=== PATIENT | male | born 1960 | race Two or more races ===

== ENCOUNTER 2025-09-04 21:42 | Emergency (ER) | payer OTHER, MEDICAID ==
[~2025-09-04] VITALS: Ht 177.8 cm; Wt 83.9 kg
[2025-09-04 22:56] LABS: Hematocrit 35.2 % (41.0-53.0); Hemoglobin 12.1 g/dL (13.5-17.5); Mean Corpuscular Hemoglobin 30.6 pg (28.0-32.0); Mean Corpuscular Volume 88.8 fL (80.0-100.0); Nucleated Red Blood Cells % 0.1 %
--- NOTE | 2025-09-04 23:05 | ED.PDOC ---
HPI Comments 65 year old male presents to ER with complaints of shortness of breath x 1 day. Patient with PMH of A-Fib, CHF, chronic upper back pain and anxiety/panic attacks reports he has been experiencing intermittent episodes of shortness of breath x 1 day from "frequent panic attacks". He reports chronic 10/10 upper back pain, denying any other pain and presents to ER ambulatory with use of walker, in mild distress. Denies chest pain, palpitations, n/v, dizziness, headache, recent illness or any further symptoms/complaints Chief Complaint: Anxiety Time Seen by MD: 21:59 Primary Care Provider: [facility] Reviewed Notes: Nurses Notes, Medications, Allergies Allergies: Coded Allergies: NO KNOWN ALLERGIES (Unverified , 09/04/25) Information Source: Patient Mode of Arrival: Ambulatory Past Medical History PAST MEDICAL HISTORY: AFIB, Anxiety, CHF Past Medical History (Other): Chronic thoracic back pain Thoracic compression fx's Panic attacks Surgical History: Denies all surgeries Family History Family History: Unknown Social History Smoker: Non-Smoker Alcohol: Denies ETOH Use Drugs: Denies Drug Use Lives In: Home Constitutional: denies: chills, diaphoresis, fatigue, fever, malaise, sweats, weakness, others EENTM: denies: blurred vision, double vision, ear bleeding, ear discharge, ear drainage, ear pain, ear ringing, eye pain, eye redness, hearing loss, mouth pain, mouth swelling, nasal discharge, nose bleeding, nose congestion, nose pain, photophobia, tearing, throat pain, throat swelling, voice changes, others Respiratory: reports: others (As stated in HPI) Cardiovascular: reports: others (As stated in HPI) Gastrointestinal: denies: abdomen distended, abdominal pain, blood streaked bowels, constipated, diarrhea, dysphagia, difficulty swallowing, hematemesis, melena, nausea, poor appetite, poor fluid intake, rectal bleeding, rectal pain, vomiting, others Genitourinary: denies: burning, dysuria, flank pain, frequency, hematuria, incontinence, penile discharge, penile sore, pain, testicle pain, testicle swelling, urgency, others Neurological: denies: dizziness, fainting, headache, left sided numbness, left sided weakness, numbness, paresthesia, pre-existing deficit, right sided numbness, right sided weakness, seizure, speech problems, tingling, tremors, weakness, others Musculoskeletal: denies: back pain, gout, joint pain, joint swelling, muscle pain, muscle stiffness, neck pain, others Integumetry: denies: bruises, change in color, change in hair/nails, dryness, laceration, lesions, lumps, rash, wounds, others Allergic/Immunocompromised: denies: Difficulty Healing, Frequent Infections, Hives, Itching, others Hematologic/Lymphatic: denies: anemia, blood clots, easy bleeding, easy bruising, swollen glands, others Endocrine: denies: excessive hunger, excessive sweating, excessive thirst, excessive urination, flushing, intolerance to cold, intolerance to heat, unexplained weight gain, unexplained weight loss, others Psychiatric: denies: anxiety, bipolar disorder, depression, hopeless, panic disorder, schizophrenia, sleepless, suicidal, others Physical Exam General Appearance: Mild Distress HEENT: Normal ENT Inspection, PERRL/EOMI, Pharynx Normal, TMs Normal Neck: Full Range of Motion, Non-Tender, Normal Respiratory: Chest Non-Tender, Lungs Clear, No Accessory Muscle Use, No Respiratory Distress, Normal Breath Sounds Cardiovascular: No Murmur, No Gallop, Regular Rate/Rhythm Breast Exam: Deferred Gastrointestinal: NOT DONE Genitalia: Deferred Pelvic: Deferred Rectal: Deferred Extremities: No calf tenderness, Normal capillary refill, Normal range of motion Neurologic: Alert, sign builder II-XII nml as Tested, No Motor Deficits, No Sensory Deficits, Other (Ambulatory with use of walker) Cerebellar Function: Normal Reflexes: Normal Skin: Dry, Normal Color, Warm Peripheral Pulses: 2+ carotid (R), 2+ carotid (L), 2+ Radial (R), 2+ Radial (L), 2+ Brachial (R), 2+ Brachial (L) Lymphatic: No Adenopathy EKG EKG : Pulse Rate (adult): 88 Cardiac Rhythm: Afib Was a procedure done? Was a procedure done?: No Sedation Sedation?: No CP Differential Dx Differential Diagnosis: Hyperthyroidism, [place], Pulmonary Embolus, Ventricular Dysrhythmia X-Ray, Labs, Meds, VS Vital Signs Date Time Temp Pulse Resp B/P (MAP) Pulse Ox O2 Delivery O2 Flow Rate FiO2 09/05/25 00:16 97.6 89 20 130/92 (105) 100 97.6 09/04/25 23:05 88 09/04/25 22:56 88 09/04/25 22:52 Room Air* 0 21 09/04/25 22:52 98.5 101 20 155/89 (111) 98 98.5 09/04/25 21:50 98.5 101 20 155/89 98 98.5 Lab Test 09/04/25 23:39 09/04/25 22:49 Range/Units Urine Color Colorless Yellow Urine Clarity Clear Clear Urine pH 6.5 5.0-9.0 Urine Specific [place] 1.009 1.001-1.035 Urine Protein Negative Negative Urine Ketones Negative Negative Urine Blood Negative Negative /uL Urine Nitrite Negative Negative Urine Bilirubin Negative Negative Urine Urobilinogen Normal Negative mg/dL Urine Leukocyte Esterase Negative Negative /uL Urine RBC None seen 0 - 3 /hpf Urine Microscopic WBC 1 0-3 /HPF Urine Squamous Epithelial Cells None seen <5 /hpf Urine Bacteria None seen None Seen /hpf Urine Sperm Present None Seen /hpf Urine Glucose 4+ H Normal mg/dL Urine Opiates Screen Neg NEGATIVE Urine Fentanyl Screen Neg NEGATIVE Urine Barbiturates Screen Neg NEGATIVE Urine Phencyclidine Screen Neg NEGATIVE Urine Amphetamines Screen Pos NEGATIVE Urine Benzodiazepines Screen Neg NEGATIVE Urine Cocaine Screen Neg NEGATIVE Urine Cannabinoids Screen Neg NEGATIVE White Blood Count 5.4 4.4-10.8 10^3/uL Red Blood Count 3.96 L 4.5-5.90 10^6/uL Hemoglobin 12.1 L 13.5-17.5 g/dL Hematocrit 35.2 L 41.0-53.0 % Mean Corpuscular Volume 88.8 80.0-100.0 fL Mean Corpuscular Hemoglobin 30.6 28.0-32.0 pg Mean Corpuscular Hemoglobin Concent 34.5 32.0-36.0 g/dL Red Cell Distribution Width 14.5 H 11.8-14.3 % Platelet Count 167 140-450 10^3/uL Mean Platelet Volume 8.9 6.9-10.8 fL Neutrophils (%) (Auto) 74.7 37.0-80.0 % Lymphocytes (%) (Auto) 17.7 10.0-50.0 % Monocytes (%) (Auto) 4.1 0.0-12.0 % Eosinophils (%) (Auto) 3.0 0.0-7.0 % Basophils (%) (Auto) 0.5 0.0-2.0 % Neutrophils # (Auto) 4.0 1.6-8.6 10 ^3/uL Lymphocytes # (Auto) 1.0 0.4-5.4 10 ^3/uL Monocytes # (Auto) 0.2 0-1.3 10 ^3/uL Eosinophils # (Auto) 0.2 0-0.8 10 ^3/uL Basophils # (Auto) 0 0-0.2 10 ^3/uL Nucleated Red Blood Cells 0.1 % Sodium Level 138 136-145 mmol/L Potassium Level 4.2 3.5-5.1 mmol/L Chloride Level 105 98-107 mmol/L Carbon Dioxide Level 25 20-31 mmol/L Anion Gap 8 5-15 Blood Urea Nitrogen 14 9-23 mg/dL Creatinine 1.14 0.700-1.30 mg/dL Glomerular Filtration Rate Calc 71 >90 mL/min BUN/Creatinine Ratio 12.3 10.0-20.0 Serum Glucose 86 74-106 mg/dL Calcium Level 9.2 8.7-10.4 mg/dL Troponin I High Sensitivity 22 </=54 ng/L B-Type Natriuretic Peptide 609.95 0-100 pg/mL Current Medications Medications (Trade) Dose Ordered Sig/Junior Route Start Time Stop Time Status Last Admin Lorazepam (Ativan Tablet) 1 mg ONCE ONCE PO 09/04/25 23:45 09/04/25 23:46 DC 09/05/25 00:01 PATIENT: CHIRAG RAMONCCT: [id number]: [id number] : 1960 LOC: ER ROOM / BED: / AGE / SEX: 65 / M ADM STATUS: REG ER SERVICE [id number] ORDERING PHYSICIAN: TEODORA CUNNINGHAM PROCEDURE(s): CXR2 - CHEST TWO VIEWS ROUTINE REASON: shortness of breath ORDER NUMBER(s): [id number], ACCESSION NUMBER(s): [id number] CHEST RADIOGRAPH Indication: shortness of breath Technique: 2 views Comparison: None FINDINGS: Lines and Tubes: None. Lungs/Pleura: No focal consolidation, pleural effusion or pneumothorax. Cardiomediastinum: Cardiomegaly. Central pulmonary vessels appear within normal limits. Other: No acute osseous abnormality. Exaggerated lower thoracic kyphosis. IMPRESSION: 1. Cardiomegaly without acute cardiopulmonary abnormality. ATED BY: ISAC TOLENTINO MD DICTATED DATE/TIME: 09/04/252313 SIGNED BY: ISAC TOLENTINO MD SIGNED DATE/TIME: 09/04/252313 CC: CBC reviewed without any significant abnormalities BMP reviewed-unremarkable BNP reviewed- 609.95 Troponin reviewed - normal Urinalysis reviewed without any significant abnormalities UDS reviewed- + amphetamines Chest x-ray reviewed EKG reviewed - rate controlled, no stemi, no acute ischemic changes Ativan 1 mg p.o. ordered Advised to continue at home medications as prescribed Patient had improvement in symptoms, denied any shortness of breath and in no distress prior to discharge Advised to f/u with PCP, cardiology and psychiatrist in 1-2 days Patient alert and oriented x4 prior to discharge. Patient verbalized understanding and agreeable with current care Advised to follow up with PCP in 1-2 days Images Reviewed?: Images reviewed and evaluated by me Time of 1ST Reevaluation: 23:05 Reevaluation 1ST: N/A Time of 2ND Reevaluation: 00:12 Reevaluation 2ND: Improved Patient Education/Counseling: Diagnosis, Treatment, Prognosis, Need For Follow Up Family Education/Counseling: Diagnosis, Treatment, Prognosis, Need For Follow Up SEPSIS Sepsis Screen Date sepsis recognized/suspect: Sep 04, 2025 Time Sepsis recognized/suspect: 2152 Recent Procedure: No On Antibiotic Therapy: No Respiratory Rate >20: No Heart Rate >90: No Temp<36 C (96.8 F) or >38.3 C: No SBP <90 or MAP <65 mmHG: No New Acute Mental Status Change: No Is the patient on CPAP, BIPAP,: No Physician Orders Electrocardigram (09/04/25 21:59) Chest Two Views Routine (09/04/25 21:59) Vital Signs Date Time Temp Pulse Resp B/P (MAP) Pulse Ox O2 Delivery O2 Flow Rate FiO2 09/05/25 00:16 97.6 89 20 130/92 (105) 100 97.6 09/04/25 23:05 88 09/04/25 22:56 88 09/04/25 22:52 Room Air* 0 21 09/04/25 22:52 98.5 101 20 155/89 (111) 98 98.5 09/04/25 21:50 98.5 101 20 155/89 98 98.5 Laboratory Tests Test 09/04/25 22:49 White Blood Count 5.4 10^3/uL (4.4-10.8) Medications Medications Dose Ordered Sig/Junior Route Start Time Stop Time Status Last Admin Dose Admin Lorazepam 1 mg ONCE ONCE PO 09/04/25 23:45 09/04/25 23:46 DC 09/05/25 00:01 Departure 1 Departure Time of Disposition: 00:15 Impression: Primary Impression: Panic attack Additional Impressions: Atrial fibrillation with controlled ventricular rate Chronic CHF Qualified Codes: I50.9 - Heart failure, unspecified Disposition: 01 HOME / SELF CARE / HOMELESS Condition: Stable Discharged With: Friend Critical Care Note Critical Care Time?: No Stability Stability form required: No Heart Score Heart Score: Heart Score Response (Comments) Value History N/A 0 EKG N/A 0 Age N/A 0 Risk Factors N/A 0 Troponin N/A 0 Total 0 TEODORA CUNNINGHAM Sep 04, 2025 23:05
[2025-09-04 23:15] LABS: Chloride 105 mmol/L (98-107); Potassium 4.2 mmol/L (3.5-5.1); Sodium 138 mmol/L (136-145)
[2025-09-04 23:16] LABS: Anion Gap 8 (5-15); Carbon Dioxide 25 mmol/L (20-31)
--- NOTE | 2025-09-04 23:16 | DVH ---
CHEST RADIOGRAPH Indication: shortness of breath Technique: 2 views Comparison: None FINDINGS: Lines and Tubes: None. Lungs/Pleura: No focal consolidation, pleural effusion or pneumothorax. Cardiomediastinum: Cardiomegaly. Central pulmonary vessels appear within normal limits. Other: No acute osseous abnormality. Exaggerated lower thoracic kyphosis. IMPRESSION: 1. Cardiomegaly without acute cardiopulmonary abnormality.
[2025-09-04 23:17] LABS: Calcium 9.2 mg/dL (8.7-10.4)
[2025-09-04 23:22] LABS: BUN/Creatinine Ratio 12.3 (10.0-20.0); Blood Urea Nitrogen 14 mg/dL (9-23); Glucose 86 mg/dL (74-106)
[2025-09-04 23:54] LABS: Urine Protein, UAD Negative (Negative)
[2025-09-05] MEDS: LORazepam 0.5 MG TAB PO ONE (00:01)
[2025-09-05 00:03] LABS: Amphetamine Screen, Urine Pos (NEGATIVE); Barbiturate Scree,Urine Neg (NEGATIVE); Benzodiazephine Screen, Urine Neg (NEGATIVE); Cannabinoid Screen, Urine Neg (NEGATIVE); Cocaine Screen, Urine Neg (NEGATIVE); Opiate Scree,Urine Neg (NEGATIVE); Phencyclidine Screen, Urine Neg (NEGATIVE)
[2025-09-05 00:16] VITALS: BP 130/92; PULSE 89; RESP 20; TEMP 97.6; O2SAT 100
--- NOTE | 2025-09-05 06:27 | ECG ---
[facility] Test Date: 2025-09-04 Test Time: 22:07:05 Pat Name: BAILEY RAMON Department: ED Room: Gender: M [employer] Operator: MARYURI : 1960 Requested By: TEODORA CUNNINGHAM Order Number: [id number] Reading MD: Jared Jones Measurements Intervals [place] Rate: 88 P: 0 NE: 0 QRS: 60 QRSD: 106 T: 147 QT: 407 QTc: 493 Interpretive Statements Atrial fibrillation LVH with secondary repolarization abnormality Borderline prolonged QT interval Electronically Signed On 09-05-2025 11:45:54 PST by Jared Jones Please click the below link to view image of tracing.
== END 2025-09-05 00:24 | disposition home or self-care (01) ==
LOC: ER 21:42
DX: F41.0 Panic disorder [episodic paroxysmal anxiety] (principal); I48.91 Unspecified atrial fibrillation; I50.9 Heart failure, unspecified; G89.29 Other chronic pain
CPT/HCPCS: 36415; 71046; 80048; 80307; 81001; 83880; 84484; 85025; 93005